=== PATIENT | male | born 1975 | race African-American/Black ===

== ENCOUNTER 2020-05-07 20:00 | Emergency (ER) | payer OTHER ==
--- NOTE | 2020-05-07 21:06 | RAD ---
PORTABLE CHEST: 05/07/20 HISTORY: Cough. Chest tightness. Shortness of breath. Heart size and mediastinum are within normal limits. The lungs are clear of any focal infiltrative pr ocess. IMPRESSION: No active intrathoracic disease. POS: [facility]
[2020-05-08 15:11] LABS: SARS-CoV-2 MS2 Positive; SARS-CoV-2 N Gene Positive; SARS-CoV-2 S Gene Positive; SARS-CoV-2 orf1ab Positive
== END 2020-05-07 22:15 | disposition home or self-care (01) ==
LOC: ERS 20:00
DX: U07.1 COVID-19 (principal); E78.5 Hyperlipidemia, unspecified
CPT/HCPCS: 71045; 87635; U0003

== ENCOUNTER 2023-06-06 20:02 | Observation (INO) | payer BC ==
[2023-06-06] MEDS ORDERED: Morphine 4 MG/ML VIAL ONE (20:21)
[2023-06-06 20:42] LABS: Bacteria/HPF None Seen HPF (None Seen); Bilirubin Negative (Negative); Blood, Urine Negative (Negative); CAUTI Indications for Culture Alt mental st,lethar; Clarity Clear (Clear); Glucose, Urine (Dipstick) Normal (Negative); Ketone, Urine Negative (Negative); Leukocyte Negative Leu/uL (Negative); Nitrite Negative (Negative); Protein, Urine (Dipstick) Negative (Neg-Trace); RBC/HPF 0-3 HPF (0-3); Squamous Epithelial None Seen HPF (0-3); Urobilinogen Normal mg/dL (Less than 2); WBC/HPF 0-3 HPF (0-3)
[2023-06-06 20:43] LABS: #Eosinphils 0.1 thou/uL (0.0-0.7); #Monocytes 0.8 thou/uL (0.11-0.59); #Neutrophils 9.3 thou/uL (1.40-6.50); %Basophils 0.3 % (0.0-1.0); %Eosinophils 0.6 % (0.0-10.0); %Lymphocytes 18.3 % (21.0-51.0); %Monocytes 6.2 % (0.0-10.0); %Neutrophils 74.2 % (42.0-75.0); Hemoglobin 14.8 g/dL (14.0-18.0); Mean Corpuscular Hemoglobin 28.6 pg (27.0-31.0); Mean Corpuscular Volume 84.1 fl (78.0-98.0); Mean Platelet Volume 8.8 fL (7.4-10.4); Platelet Count 298 10x3/uL (130-400); Red Blood Cell (RBC) Count 5.17 mill/uL (4.70-6.10); White Blood Cell (WBC) Count 12.6 10x3/uL (4.8-10.8)
[2023-06-06 20:44] LABS: Urine Culture Reflex No No
[2023-06-06 21:09] LABS: ALT (SGPT) 40 U/L (8-55); AST (SGOT) 22 U/L (5-34); Albumin 4.6 g/dL (3.5-5.0); Alkaline Phosphatase 71 U/L (40-110); Anion Gap 15 mmol/L (10-20); BUN (Urea Nitrogen) 13 mg/dL (8.9-20.6); Bilirubin, Total 0.5 mg/dL (0.2-1.2); Calc. Creatinine Clearance 0 mL/min (70-130); Calcium 9.4 mg/dL (7.8-10.44); Carbon Dioxide 22 mmol/L (22-29); Chloride 101 mmol/L (98-107); Estimated GFR 71; Globulin 3.2 g/dL (2.4-3.5); Glucose 115 mg/dL (70-105); Potassium 3.8 mmol/L (3.5-5.1); Protein, Total 7.8 g/dL (6.0-8.3); Sodium 134 mmol/L (136-145)
[2023-06-06] MEDS ORDERED: Piperacillin/Tazobactam 3.375 GM VIAL ONE (21:35)
[2023-06-06] MEDS ORDERED: Cyclobenzaprine 10 MG TAB PO PRN (22:10)
[2023-06-06] MEDS ORDERED: traMADol HCl 50 MG TAB PO PRN (22:10)
[2023-06-06] MEDS ORDERED: Morphine 2 MG/ML VIAL SLOW IVP PRN (22:10)
[2023-06-06] MEDS ORDERED: Sodium Chloride 0.9% 1,000 ML IV SCH (22:15)
[2023-06-06] MEDS ORDERED: Amlodipine 10 MG TAB PO SCH (22:15)
[2023-06-06] MEDS ORDERED: Ketorolac Tromethamine 30 MG/ML VIAL IVP SCH (22:15)
[2023-06-06 22:42] VITALS: BMI 38.7
[2023-06-06] MEDS: traMADol HCl 50 MG TAB PO SCH (22:44)
[2023-06-06] MEDS: Sodium Chloride 0.9% 1,000 ML IV SCH (23:06)
[2023-06-07] MEDS: Piperacillin/Tazobactam 3.375 GM in Sodium Chloride 0.9% 100 ML IVPB SCH ×3 (01:23→20:02)
[2023-06-07] MEDS: Ketorolac Tromethamine 30 MG/ML VIAL IVP SCH ×3 (05:30→18:35)
[2023-06-07] MEDS: traMADol HCl 50 MG TAB PO SCH ×3 (05:31→18:35)
[2023-06-07] MEDS: Sodium Chloride 0.9% 1,000 ML IV SCH ×2 (06:30→15:41)
[2023-06-07 08:19] LABS: INR-International Normal Ratio 1.1; PTT 27.5 sec (22.9-36.1); Prothrombin Time 14.1 sec (12.0-14.7)
[2023-06-07] MEDS ORDERED: Senokot S 8.6-50 MG TAB PO SCH (09:00)
[2023-06-07] MEDS ORDERED: Polyethylene Glycol 3350 17 GM Packet PO SCH (09:00)
[2023-06-07 13:40] VITALS: BP 123/81; TEMP 97.6
[2023-06-07] MEDS ORDERED: Piperacillin/Tazobactam 3.375 GM VIAL ONE (17:09)
[2023-06-07] MEDS ORDERED: Sodium Chloride 0.9% 100 ML ONE (17:10)
[2023-06-07] MEDS ORDERED: fentaNYL PF 100 MCG/2 ML SYRINGE ONE (17:34)
[2023-06-07] MEDS ORDERED: Succinylcholine 200 MG/10 ml SYRINGE FS ONE (17:54)
[2023-06-07] MEDS ORDERED: PHENYLEPHRINE-NS 100 MCG/ML 10 ML SYRINGE ONE (17:54)
[2023-06-07] MEDS ORDERED: Rocuronium Bromide 10 MG/ML (10ML VIAL) ONE (17:54)
[2023-06-07] MEDS ORDERED: Ondansetron PF 4 MG/2 ML Vial ONE (17:54)
[2023-06-07] MEDS ORDERED: Dexamethasone 20 MG/5 ML VIAL ONE (17:54)
[2023-06-07] MEDS ORDERED: PROPOFOL 200 MG/20 ML VIAL ONE (17:54)
[2023-06-07] MEDS ORDERED: Glycopyrrolate 0.2 MG/ML 5 ML SYRINGE ONE (17:54)
[2023-06-07] MEDS ORDERED: NEOSTIGMINE 3 MG/3 ML SYR 3 MG/3 ML SYRINGE ONE (17:54)
[2023-06-07] MEDS ORDERED: Bupivacaine HCl 0.5%/Epinephrine 1:200,000/PF 30 ml Vial ONE (18:25)
[2023-06-07] MEDS ORDERED: HYDROmorphone 2 MG/ML VIAL SLOW IVP PRN (19:11)
[2023-06-07] MEDS ORDERED: PACU-Morphine 4MG/ML VIAL SLOW IVP PRN (19:11)
[2023-06-07] MEDS ORDERED: Ondansetron HCl/PF 4 MG/2 ML Vial IVP PRN (19:11)
[2023-06-07] MEDS ORDERED: Promethazine HCl 25 MG/ML VIAL IM PRN (19:11)
[2023-06-07] MEDS ORDERED: fentaNYL 50 mcg/mL 1 mL Vial ONE (19:55)
== END 2023-06-07 22:10 | disposition home or self-care (01) ==
LOC: ERS 20:02 → T4-A 21:46
PROVIDERS: ADMIT Surgery; ATTEND Surgery
PROC: 0DTJ4ZZ Resection of Appendix, Percutaneous Endoscopic Approach (ICD-10-PCS; principal; 2023-06-07)
DX: K35.30 Acute appendicitis with localized peritonitis, without perforation or gangrene (principal)
CPT/HCPCS: 36415; 74176; 80053; 81001; 85025; 85610; 85730; 86850; 86900; 86901; 88304; 96365; 96366; 96375; 96376; G0378; J1100; J1885; J2270; J2272; J2405; J2543; J2704; J3010; J3490; J7050

== ENCOUNTER 2024-12-08 10:19 | Emergency (ER) | payer BC ==
[2024-12-08 11:06] LABS: Bacteria/HPF None Seen HPF (None Seen); Bilirubin Negative (Negative); Blood, Urine Negative (Negative); CAUTI Indications for Culture Pelvic or flank pain; Clarity Clear (Clear); Glucose, Urine (Dipstick) Normal (Negative); Ketone, Urine Negative (Negative); Leukocyte Negative Leu/uL (Negative); Nitrite Negative (Negative); Protein, Urine (Dipstick) Negative (Neg-Trace); RBC/HPF None Seen HPF (0-3); Specific Gravity, Urine 1.019 (1.002-1.036); Squamous Epithelial None Seen HPF (0-3); Urobilinogen Normal mg/dL (Less than 2); WBC/HPF 0-3 HPF (0-3)
[2024-12-08 11:09] LABS: Urine Culture Reflex No No
[2024-12-08 11:53] LABS: #Basophils 0.03 10x3/uL (0.0-0.2); %Basophils 0.5 % (0.0-1.0); %Eosinophils 1.5 % (0.0-10.0); %Lymphocytes 27.8 % (21.0-51.0); %Monocytes 7.5 % (0.0-10.0); %Neutrophils 62.5 % (42.0-75.0); Hematocrit 42.9 % (42.0-52.0); Hemoglobin 14.9 g/dL (14.0-18.0); Mean Corpuscular HGB CONC 34.7 g/dL (32.0-36.0); Mean Corpuscular Hemoglobin 28.5 pg (27.0-31.0); Mean Platelet Volume 8.7 fL (7.4-10.4); Platelet Count 270 10x3/uL (130-400); RBC Distribution Width 13.7 % (11.5-14.5); Red Blood Cell (RBC) Count 5.23 mill/uL (4.70-6.10)
[2024-12-08] MEDS ORDERED: fentaNYL 50 mcg/mL 1 mL Vial ONE (11:55)
[2024-12-08] MEDS ORDERED: Ondansetron PF 4 MG/2 ML Vial ONE (11:55)
[2024-12-08] MEDS ORDERED: Ketorolac Tromethamine 30 MG (1 mL) VIAL ONE (11:55)
[2024-12-08 12:16] LABS: ALT (SGPT) 42 U/L (Less than 45); AST (SGOT) 28 U/L (11-34); Albumin 4.5 g/dL (3.1-4.5); Alkaline Phosphatase 60 U/L (40-110); Anion Gap 13 mmol/L (10-20); BUN (Urea Nitrogen) 15 mg/dL (8.9-20.6); Calc. Creatinine Clearance 0 mL/min (70-130); Calcium 9.3 mg/dL (7.8-10.44); Carbon Dioxide 21 mmol/L (22-29); Chloride 106 mmol/L (98-107); Estimated GFR 82; Globulin 3.5 g/dL (2.4-3.5); Glucose 92 mg/dL (70-105); Lipase 22 U/L (8-78); Potassium 4.2 mmol/L (3.5-5.1); Sodium 136 mmol/L (136-145)
== END 2024-12-08 13:00 | disposition home or self-care (01) ==
LOC: ERS 10:19
DX: M54.50 Low back pain, unspecified (principal)
CPT/HCPCS: 74176; 80053; 81001; 83690; 85025; 96374; 96375; J1885; J2405; J3010